=== PATIENT | male | born 1940 | race Caucasian/White ===

== ENCOUNTER 2023-02-09 20:48 | Emergency (ER) | payer MEDICARE, OTHER ==
[2023-02-09] MEDS ORDERED: EPINEPHrine 1 MG/10 ML Abboject SYRINGE ONE (20:59)
[2023-02-09] MEDS ORDERED: Calcium Chloride 1 GM/10 ML Abboject SYRINGE ONE (20:59)
[2023-02-09] MEDS ORDERED: Sodium Bicarb 50 MEQ/50 ML Abboject 8.4% SYRINGE ONE (20:59)
== END 2023-02-09 21:34 | disposition expired ==
LOC: EEVIPCON 20:48 → ERS 20:48
DX: I46.9 Cardiac arrest, cause unspecified (principal); I11.0 Hypertensive heart disease with heart failure; I50.9 Heart failure, unspecified; I25.10 Atherosclerotic heart disease of native coronary artery without angina pectoris; E03.9 Hypothyroidism, unspecified
CPT/HCPCS: 36430; 86900; 86901; 86920; P9016; P9035; P9048; 92950; J0171